=== PATIENT | female | born 1995 | race Caucasian/White ===

== ENCOUNTER 2022-01-21 15:28 | Emergency (ER) | payer OTHER, SELFPAY ==
[2022-01-21 15:31] VITALS: BP 132/83; PULSE 84; RESP 16; TEMP 36.5; O2SAT 99; BMI 30.5
--- NOTE | 2022-01-21 15:51 | US_ITS ---
PROCEDURE INFORMATION: Exam: US , Transvaginal Exam date and time: 01/21/2022 4:02 PM Age: 27 years old Clinical indication: Lmp or gestational age (in weeks): 6w; Antepartum complications; complicated by abdominal or pelvic pain; Lower; First trimester (<14 weeks 0 days); ; Prior surgery; Surgery date: 6+ months; Surgery type: Iud placement x 2 yrs; Patient HX: Iud in place -- pos preg; Additional info: Concern for ectopic TECHNIQUE: Imaging protocol: Real-time transvaginal obstetrical ultrasound of the maternal pelvis with image documentation. Transvaginal imaging was used for better evaluation of the fetus, adnexa, and/or cervix. COMPARISON: No relevant prior studies available. FINDINGS: Gestation: There is a single intrauterine gestational sac containing a pole and yolk sac. The crown-rump length measures 3.3 mm for an estimated gestational age by ultrasound of 6 weeks 0 days. heart rate is 112 per minute. MATERNAL: Uterus: There is an intrauterine contraceptive device in place, which appears appropriately positioned within the endometrial canal. The cervix is long and closed. Right ovary/adnexa: The right ovary measures 2.4 x 1.9 x 1.3 cm (3.3 mL) Ovarian stroma is unremarkable. There is normal arterial inflow and venous outflow. Left ovary/adnexa: The left ovary measures 2.8 x 1.8 x 1.6 cm (4.6 mL) Ovarian stroma is unremarkable. There is normal arterial inflow and venous outflow. IMPRESSION: 1. Single live intrauterine gestational sac with an estimated gestational age by ultrasound of 6 weeks 0 days. 2. There is an intrauterine contraceptive device in place, which appears appropriately positioned within the endometrial canal.
[2022-01-21 15:58] LABS: Microscopic, Urine URINE MICROSCOPIC (MICROSCOPIC)
[2022-01-21 16:09] LABS: Appearance,Urine CLEAR (Clear); Bilirubin,Urine Negative (Negative); Blood, Urine TRACE-I (Negative); Color,Urine YELLOW (Yellow); Glucose,Urine (UA) Negative (Negative); Ketones,Urine Negative (Negative); Leukocyte Esterase,Urine 1+ (Negative); Nitrate,Urine Negative (Negative); PH,Urine 7.5 (5.0-8.5); Protein,Urine Negative (Negative); Urobilinogen,Urine 0.2 EU/dl (0.2)
[2022-01-21 16:33] LABS: Bacteria,Urine 1+ /lpf
--- NOTE | 2022-01-21 16:38 | HMH.EDGENADL ---
Discharge Plan Disposition Patient Disposition: Home, Self-Care Condition: Good Prescriptions Prescriptions: New nitrofurantoin monohyd/m-cryst [Macrobid] 100 mg capsule 100 mg PO BID 5 Days Qty: 10 0RF Rx Instructions: must administer with a meal/food Clinical Impressions Clinical Impression: Vaginal bleeding, Instructions Patient Instructions: Early Bleeding Discharge ED Provider: Duy Coy General Adult HPI General Chief complaint: Vaginal Bleeding Stated complaint: Abd pain back PICHARDO 4 Possible Preg test Time Seen by Provider: 01/21/22 15:30 Mode of Arrival: Ambulatory Source of Information: Patient Limitations: No Limitations Description of Symptoms (Recalled from ER Triage Doc. by RN): Pt reports positive test today. LMP December 02 (last day). Pt reports nausea x3 days, feeling very tired x3 days. Pt reports has a paraguard IUD (placed 2 years ago). Pt reports on Monday of this weeks she began having brown vaginal discharge that she thought was her started her period but states has not had more than just small amount of discharge each day since monday. Pt reports lower pelvic cramping mainly on R side of pelvic area. History of Present Illness HPI narrative: Patient is a 27-year-old female who presents with concern for vaginal bleeding and multiple other complaints. She says that her last menstrual period was December 02. She says that she has an IUD in place that was placed 2 years ago. She says that over the last couple days she has been feeling tired and also reports nausea. She says that she also noted some brown vaginal discharge that she was not sure what was vaginal bleeding. She says that she thought this was her period but it was only a small amount. She also complains of some lower pelvic abdominal cramping particularly on the right side. She says that she took a test which was positive for times. Denies any fever or chills. Denies any constipation or diarrhea. Related Data Previous Rx's Medication Instructions Recorded nitrofurantoin 100 mg PO BID 5 days #10 caps 01/21/22 monohydrate/macrocrystals 100 mg capsule (Macrobid) Allergies Allergy/AdvReac Type Severity Reaction Status Date / Time No Known Allergies Allergy Verified 01/21/22 16:37 PFSH PFSH Social History Smoking Status: Never smoker alcohol intake: former current occupational status: other Travel in the last 8 weeks: None ROS Obtained: Yes All systems reviewed & no additional complaints except as documented A 14 point review of system was obtained and otherwise negative except per HPI Physical Exam General General appearance: alert and in no apparent distress Head Head exam: atraumatic, normocephalic and normal inspection Eye Eye exam: Present normal appearance, PERRL and EOMI ENT ENT exam: Present normal exam, normal oropharynx, mucous membranes moist, TM's normal bilaterally and normal external ear exam Neck Neck exam: Present normal inspection, full ROM and trachea midline; Absent meningismus or lymphadenopathy Chest Chest inspection: Present normal inspection and symmetric chest wall rise; Absent tenderness Respiratory Respiratory exam: Present normal lung sounds bilaterally; Absent respiratory distress Cardiovascular Cardiovascular exam: Present regular rate and normal rhythm; Absent JVD Abdominal Exam Abdominal exam: Present soft and normal bowel sounds; Absent distention, tenderness or guarding Abdominal tenderness: Present RLQ Extremities Exam Extremities exam: Present normal inspection, full ROM and normal capillary refill; Absent calf tenderness Back Exam Back exam: Present normal inspection; Absent tenderness Neurological Exam Neurological exam: Present alert and oriented X3 Psychiatric Psychiatric exam: Present normal affect and normal mood Skin Skin exam: Present warm, dry, intact and normal color Lymphatic Lymp
--- NOTE | 2022-01-21 16:42 | PC.NURSE ---
PATY HARRIS stated okay to cancel lab work on pt
[2022-01-21 16:56] VITALS: BP 146/83; PULSE 90; RESP 18; TEMP 37.1; O2SAT 96
== END 2022-01-21 16:58 | disposition home or self-care (01) ==
LOC: ER 16:36
PROVIDERS: Emergency Provider Student in an Organized Health Care Education/Training Program
DX: O20.9 Hemorrhage in early pregnancy, unspecified (principal); Z3A.01 Less than 8 weeks gestation of pregnancy
CPT/HCPCS: 76817; 81001; 87086; 99284

== ENCOUNTER → 2022-11-17 16:41 | Outpatient (CLI) | payer OTHER, SELFPAY ==
[2022-11-17 15:11] LABS: Chloride 106 mmol/L (98-107); Sodium 141 mmol/L (136-145)
[2022-11-17 15:12] LABS: Potassium 4.7 mmoL/L (3.5-5.1)
[2022-11-17 15:14] LABS: Alanine Aminotransferase 22 U/L (12-78); Albumin Level 4.5 g/dl (3.5-5.0); Albumin/Globulin Ratio 1.4 (1.1-1.8); Alkaline Phosphatase 78 U/L (38-126); Anion Gap 16.7 mEq/L (5-15); Aspartate Amino Transferase 27 U/L (14-36); Bilirubin,Total 0.5 mg/dl (0.2-1.3); Blood Urea Nitrogen 14 mg/dl (7-17); Calcium 10.3 mg/dl (8.4-10.2); Carbon Dioxide 23 mmol/L (22.0-30.0); Cholesterol 165 mg/dl (140-200); Estimated Glomerular Filt Rate 85 ml/min (>60); GFR (African American) 103 ML/MIN (>60); Globulin 3.3 g/dL (1.3-3.2); Glucose 91 mg/dl (74-100); Total Protein,Serum 7.8 g/dl (6.3-8.2); Triglycerides 98 mg/dl (30-150); VLDL Cholesterol 20 mg/dL (0-40)
[2022-11-17 15:15] LABS: Chol/HDL Ratio 2.8 (1-3.5); HDL Cholesterol 60 mg/dl (40-60)
[2022-11-17 15:18] LABS: Basophils % 0.4 % (0.1-2.0); Eosinophils # 0.1 K/mm3 (0.0-0.4); Eosinophils % 0.9 % (0.1-12.0); Hemoglobin 14.4 g/dL (12.2-16.2); Lymphocytes % 25.9 % (10-50); Mean Corpuscular HGB Conc 32.6 g/dL (31.8-35.4); Mean Corpuscular Hemoglobin 30.8 pg (27.0-31.2); Mean Corpuscular Volume 94.4 fl (81-99); Mean Platelet Volume 8.8 fl (7.4-10.4); Monocytes # 0.4 K/mm3 (0.1-1.0); Monocytes % 5.2 % (1.7-9.3); Neutrophils # 5.3 K/mm3 (1.8-7.8); Neutrophils % 67.6 % (37.0-80.0); Platelet Count 320 K/mm3 (142-424); Red Blood Count 4.66 M/mm3 (4.20-5.40); Red Cell Distribution Width 12.5 % (11.5-17.5); White Blood Count 7.8 K/mm3 (4.8-10.8)
[2022-11-17 15:27] LABS: Direct LDL Cholesterol 76.76 mg/dL (100-129)
[2022-11-17 15:29] LABS: 25-OH Vitamin D, Total 51.3 ng/mL (30-100)
[2022-11-17 15:47] LABS: Thyroid Stimulating Hormone 2.44 uIU/mL (0.465-4.68)
[2022-11-19 08:24] LABS: FSH 2.5 mIU/mL (.)
[2022-11-19 09:59] LABS: Progesterone 13.7 ng/mL (.); Testosterone,Total 44 ng/dL (13-71)
[2022-11-25 00:07] LABS: Estrogen 346 pg/mL (.)
== END ==
LOC: LAB.DROPOF 16:42
PROVIDERS: PCP Physician Assistant; Visit Provider Physician Assistant
DX: Z00.00 Encounter for general adult medical examination without abnormal findings (principal); R23.2 Flushing; E66.9 Obesity, unspecified; Z68.30 Body mass index [BMI] 30.0-30.9, adult; F90.9 Attention-deficit hyperactivity disorder, unspecified type; Z79.899 Other long term (current) drug therapy
CPT/HCPCS: 80053; 80061; 82306; 82672; 83001; 83002; 84144; 84403; 84443; 85025

== ENCOUNTER 2023-11-01 09:03 | Emergency (ER) | payer OTHER, SELFPAY ==
[2023-11-01] VITALS (8 sets, daily range): BP systolic 93–141; BP diastolic 56–92; PULSE 60–85; RESP 16–18; TEMP 36.6–36.7; O2SAT 97–100; BMI 28.1
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
[2023-11-01] MEDS: METHOCARBAMOL 500MG TABLET 1000 MG PO (09:45)
[2023-11-01] MEDS: OXYCODONE 5MG IMMEDIATE RELEASE TABLET 5 MG PO (09:45)
[2023-11-01] MEDS: KETOROLAC 30MG/ML VIAL 15 MG IM (09:45)
--- NOTE | 2023-11-01 10:54 | PC.NURSE ---
PVR 17 mL
[2023-11-01 11:18] LABS: Urine Pregnancy, HCG Qual. Negative (Negative)
== END 2023-11-01 13:40 | disposition home or self-care (01) ==
PROVIDERS: Emergency Provider Emergency Medicine; PCP Physician Assistant
DX: M54.2 Cervicalgia (principal); M54.6 Pain in thoracic spine; M54.59 Other low back pain; V49.40XA Driver injured in collision with unspecified motor vehicles in traffic accident, initial encounter
CPT/HCPCS: 70450; 72125; 72128; 72131; 81025; 96372; 99285; J1885

== ENCOUNTER 2024-03-11 10:05 | Emergency (ER) | payer OTHER, SELFPAY ==
[2024-03-11 11:10] VITALS: BP 118/59; PULSE 66; RESP 18; TEMP 36.7; O2SAT 100; BMI 29.0
--- NOTE | 2024-03-11 11:35 | EXP.UTC ---
Discharge Plan Disposition Patient Disposition: Home, Self-Care Condition: Good Prescriptions Prescriptions: New amoxicillin 875 mg tablet 875 mg PO Q12H Qty: 20 0RF ofloxacin 0.3 % drops 10 drp otic (ear) BID 14 Days Qty: 20 0RF Rx Instructions: left ear as directed No Action Wegovy 0.5 mg/0.5 mL pen injector 0.5 mg SQ WEEKLY Qty: 2 0RF Rx Instructions: administer weeks 5 through 8 of therapy lisdexamfetamine [Vyvanse] 20 mg capsule 20 mg PO DAILY 30 Days Qty: 30 0RF Referrals Follow up/Referrals: Palmer Mcdonald DO [Primary Care Provider] - See instructions Alexsander Gordillo MD [Physician] - See instructions Abner Marks III, MD [Staff Physician] - See instructions Eliana Sheldon APRN [Nurse Practitioner] - See instructions Activity Restrictions/Add. Instructions Additional Instructions/Restrictions: Take medication as prescribed Use ear drops as prescribed Follow up with ENT for further evaluation Clinical Impressions Clinical Impression: Otitis media of left ear with rupture of tympanic membrane Instructions Patient Instructions: DI for Tympanic Membrane Perforation-Adult, Amoxicillin, Ofloxacin Otic Print Language Print Language: Georgian Discharge ED Provider: Marlena Zeng [facility] General Stated complaint: poss ear infection Mode of Arrival: Ambulatory Source of Information: Patient Limitations: No Limitations Time Seen by Provider: 03/11/24 11:38 Description of Symptoms (Recalled from Triage Doc. by RN): PATIENT C/O LEFT EAR PAIN AND FULLNESS X 5 DAYS HEENT Symptoms (Recalled from RN notes): Yes Resp Symptoms (Recalled from RN notes): No Skin Symptoms (Recalled from RN notes): No MS Symptoms (Recalled from RN notes): No Functional Status (Recalled from RN notes): WNL History of Present Illness Provider Complaint: Patient states that she was playing dodgeball with family over the hollidays and was hit in her left ear with the ball, States since then she has been having pain and pressure and got water in her ear a couple days ago and make it worse so today she came in to get checked Related Data Previous Rx's ?Medication ?Instructions ?Recorded lisdexamfetamine 20 mg capsule 20 mg PO DAILY 30 days #30 caps 02/13/24 (Vyvanse) semaglutide (weight loss) 0.5 0.5 mg (0.5 mL) SQ WEEKLY PCOS #2 02/13/24 mg/0.5 mL subcutaneous pen mL injector (Wegovy) amoxicillin 875 mg tablet 875 mg PO Q12H #20 tabs 03/11/24 ofloxacin 0.3 % ear drops 10 drp otic (ear) BID 14 days #20 03/11/24 mL Allergies Allergy/AdvReac Type Severity Reaction Status Date / Time No Known Allergies Allergy Verified 02/13/24 15:24 Worker's Comp Is this a Worker's Comp case?: No [facility] Disclaimer: The information contained in this section may have been updated after the patient was seen, as this information can be updated by other users. Medical History (Updated 03/11/24 @ 11:43 by Marlena Zeng APRN) ADHD Social History (Updated 02/13/24 @ 15:28 by MAGDA Guillaume) Smoking Status: Never smoker alcohol intake: current alcohol intake frequency: holidays/special occasions only substance use type: denies use current occupational status: other Travel in the last 8 weeks: None Have you lived/traveled outside [place] in past 30 days?: No Contact w/someone who lives/traveled outside [place] past 30 days?: No Exposure to someone with infectious disease in past 14 days?: No Do you have a fever (greater than 100.4 F or 38 C)?: No Have you tested positive for COVID-19: No Exposed to someone with COVID-19 in past 14 days?: No Do you have a sore throat?: No Do you have a cough?: No Do you have any weakness?: No Do you have any diarrhea?: No Are you experiencing any unusual bleeding?: No Do you have any muscle aches/pain?: No Do you have any abdominal pain?: No Are you experiencing loss of taste or smell?: No ROS Obtained: Yes All systems reviewed & no additional complaints except as documented and Yes Systems reviewed as appropriate & no additional complaints except as documented Constitutional Constitutional: Reports system reviewed and no additional complaints, except as documented and Reports as per HPI ENT Ears, Nose, Mouth, and Throat: Reports system reviewed and no additional complaints, except as documented, Reports as per HPI and Reports otalgia Cardiovascular Cardiovascular: Reports system reviewed and no additional complaints, except as documented and Reports as per HPI Respiratory Respiratory: Reports system reviewed and no additional complaints, except as documented and Reports as per HPI Gastrointestinal Gastrointestingal: Reports system reviewed and no additional complaints, except as documented and as per HPI Physical Exam General General appearance: alert and in no apparent distress ENT ENT exam: Present mucous membranes moist Expanded ENT Exam TM/Canal exam: Left TM: erythema (small blood spot noted on TM suspect small tear) Respiratory Respiratory exam: Present normal lung sounds bilaterally; Absent respiratory distress or wheezes Cardiovascular Cardiovascular exam: Present regular rate, normal rhythm and normal heart sounds Neurological Exam Neurological exam: Present alert, oriented X3 and normal gait Medical Decision Making Medical Records Screening: Per USPSTF and CDC recommendations, given the prevalence of disease in our region, it is our hospital?s policy to screen for HIV and viral Hepatitis for all patients aged 18 and over and those with ongoing risk factors. Errol Inquiry Pt receiving controlled substance: No Errol was queried for this patient: No Vital Signs: 03/11/24 11:10 Temperature 98.0 F Temperature Source Oral Pulse Rate [Left Brachial] 66 Respiratory Rate 18 Blood Pressure [Left Arm] 118/59 L Blood Pressure Mean [Left Arm] 78 Blood Pressure Source [Left Arm] Automatic Cuff Blood Pressure Position [Left Arm] Sitting 02 Sat by Pulse Oximetry 100 Oxygen Delivery Method Room Air
[2024-03-11 11:46] VITALS: BP 118/59; PULSE 66; RESP 18; TEMP 36.7; O2SAT 100
== END 2024-03-11 11:48 | disposition home or self-care (01) ==
PROVIDERS: Emergency Provider Nurse Practitioner; PCP Internal Medicine
DX: H66.92 Otitis media, unspecified, left ear (principal); H72.92 Unspecified perforation of tympanic membrane, left ear; H92.02 Otalgia, left ear
CPT/HCPCS: 99212; G0381